=== PATIENT | male | born 1960 | race Caucasian/White ===

== ENCOUNTER 2020-12-23 08:20 | Emergency (ER) | payer OTHER, SELFPAY ==
[2020-12-23] VITALS (11 sets, daily range): BP systolic 147–164; BP diastolic 77–93; PULSE 51–69; RESP 16–18; TEMP 36.4; O2SAT 94–98; BMI 34.2
--- NOTE | 2020-12-23 10:33 | ED.DENTAL ---
HPI - Dental/Oral General Chief complaint: Dental/Oral Stated complaint: abcess tooth to jaw Time Seen by Provider: 12/23/20 10:07 Source: patient Mode of arrival: Ambulatory Limitations: no limitations History of Present Illness HPI Narrative: Patient is a 60-year-old male who presents with neck swelling and dental pain ongoing. He has already finished a course of what like Keflex due to his allergy to penicillin. His he said he was taking it 4 times a day he did have much relief. He actually had 1 brief moment where he thought it was relieved and then he noted that he had neck swelling and pain. He denies any fever or chills. He does feel like he is having more difficulty swallowing. Although he is speaking without any signs of respiratory distress. He tried to get evaluated yesterday he saw his primary care provider who recommended he have a CT unfortunately due to the extreme heat conditions the air-conditioner at [facility] was overwhelmed in the CT scanner was down. He is here today for evaluation Teeth map: 1. Related Data Previous Rx's Medication Instructions Recorded mupirocin 2 % topical ointment 1 applic TOP TID #22 gram 02/10/19 sulfamethoxazole 800 1 tab PO BID #14 tab 02/10/19 mg-trimethoprim 160 mg tablet (Bactrim DS) clindamycin HCl 300 mg capsule 300 mg PO QID #30 cap 12/23/20 prednisone 20 mg tablet 40 mg PO DAILY #10 tab 12/23/20 Allergies Allergy/AdvReac Type Severity Reaction Status Date / Time Penicillins [PENICILLINS] Allergy Unknown Verified 02/10/19 11:14 Review of Systems Review of Systems Narrative: GENERAL: Denies chills, fatigue, malaise, fever, sweats, travel HEENT: Dental issue with neck swelling RESPIRATORY: Denies dyspnea, cough, wheezing, hemoptysis, sputum. CARDIOVASCULAR: Denies chest pain, palpitations, orthopnea, edema GASTROINTESTINAL: Denies nausea, vomiting, abdominal pain, diarrhea, constipation, melena. : Denies dysuria, frequency, incontinence, hematuria, urinary retention, flank pain. MUSCULOSKELETAL: Denies weakness, joint pain, or bony pain SKIN: No rash, no erythema, no pruritus NEUROLOGIC: Denies weakness, dizziness, headache, numbness, change in speech, confusion PSYCHIATRIC: No concerning psychosocial issues. 12 point review of systems is negative except for those stated above and HPI Patient History Social History Smoking Status: Never smoker alcohol intake: current Smoking Status: Never smoker alcohol intake frequency: 0-2 drinks per day Substance Use Type: marijuana Exam Initial Vital Signs Initial Vital Signs: Vital Signs Temperature 97.5 F L 12/23/20 08:50 Pulse Rate 65 12/23/20 08:50 Respiratory Rate 18 12/23/20 08:50 Blood Pressure 158/81 H 12/23/20 08:50 Pulse Oximetry 98 12/23/20 08:50 GENERAL: Alert very nice 60-year-old gentleman no acute distress HEENT: Head atraumatic,EOMI, pupils reactive, face symmetric, moist mucous membranes MOUTH: No dental abscess home no trismus NECK: There is actual some cervical lymphadenopathy both on the right submandibular and central located as well, no significant erythema CARDIOVASCULAR: Regular rate and rhythm without murmurs, rubs or gallops. RESPIRATORY: Breath sounds equal bilaterally, no wheezes rales or rhonchi. EXTREMITIES: Normal range of motion, no clubbing or edema. Neurovascularly intact NEUROLOGICAL: Alert and oriented x4. SKIN: Warm, dry, no laceration, no petechiae, no rashes or lesions. Course Orders Ordered: ED Orders 12/23/20 10:56 Complete Blood Count AUTO DIFF Stat Comprehensive Metabolic Panel Stat Procalcitonin Stat 12/23/20 11:19 Blood Culture Stat 12/23/20 11:40 CT soft tissue neck w con Stat Discontinued Medications Clindamycin Phosphate (Cleocin) 600 mg in 50 mls @ 50 mls/hr IV NOW ONE Stop: 12/23/20 11:34 Last Infusion: 12/23/20 12:29 Dose: 0 mls/hr Documented by: Infusion: 12/23/20 11:48 Dose: 50 mls/hr Documented by: Infusion: 12/23/20 11:34 Dose: 0 mls/hr Documented by: Admin: 12/23/20 11:22 Dose: 50 mls/hr Documented by: BUTCH Dexamethasone 20 mg/ Sodium (Chloride) 52 mls @ 208 mls/hr IV NOW ONE Stop: 12/23/20 13:43 Last Infusion: 12/23/20 14:03 Dose: 0 mls/hr Documented by: Admin: 12/23/20 13:48 Dose: 208 mls/hr Documented by: BUTCH Ketorolac Tromethamine (Ketorolac 30 Mg/Ml Vial) 30 mg IV NOW ONE Stop: 12/23/20 10:44 Last Admin: 12/23/20 11:12 Dose: 30 mg Documented by: BUTCH Vital Signs Vital signs: Vital Signs - 8 hr 12/23/20 12:00 12/23/20 12:30 12/23/20 14:10 Pulse Rate 51 L 59 L 58 L Respiratory Rate 16 Blood Pressure 161/84 H 147/82 H Pulse Oximetry 94 97 96 MDM - Dental/Oral Lab Data Result diagrams: 12/23/20 10:56 12/23/20 10:56 Labs: Lab Results 12/23/20 12/23/20 12/23/20 Range/Units 10:56 10:56 10:56 WBC 10.4 (4.5-11.0) X10^3/uL RBC 4.80 (4.5-5.9) X10^6/uL Hgb 14.5 (13.5-17.5) g/dL Hct 43.4 (41-53) % MCV 90.3 (80-100) fL MCH 30.3 (26-34) PG MCHC 33.5 (30-36) % RDW 13.6 (11.6-14.8) % Plt Count 221 (150-400) X10^3/uL Neut % (Auto) 68.5 (50-75) % Lymph % (Auto) 21.6 L (25-40) % Isabela % (Auto) 7.4 (3-14) % Eos % (Auto) 1.5 L (2-4) % Baso % (Auto) 1.0 (0-2) % Neut # (Auto) 7100 H (0187-0086) /uL Lymph # (Auto) 2300 (2809-5538) /uL Isabela # (Auto) 800 (0-900) /uL Eos # (Auto) 200 (0-450) /uL Baso # (Auto) 100 (0-100) /uL Sodium 138 (137-145) mmol/L Potassium 4.1 (3.4-5.1) mmol/L Chloride 106 (98-107) mmol/L Carbon Dioxide 22 (22-32) mmol/L BUN 17 (9-20) mg/dL Creatinine 0.77 (0.66-1.25) mg/dL Estimated GFR > 60.0 (>60) mL/min BUN/Creatinine Ratio 22.1 H (6-22) Glucose 105 (80-110) mg/dL Calcium 9.4 (8.4-10.2) mg/dL Total Bilirubin 0.7 (0.2-1.3) mg/dL AST 32 (17-59) IU/L ALT 38 (<50) IU/L Alkaline Phosphatase 60 (38-126) U/L Total Protein 7.4 (6.3-8.2) g/dL Albumin 4.3 (3.5-5.0) g/dL Globulin 3.1 (1.7-4.1) g/dL Albumin/Globulin Ratio 1.4 (1.0-2.8) Procalcitonin 0.06 (<0.5) ng/mL Imaging Data CT soft tissue neck: Radiologist's Impression: PROCEDURE: CT SOFT TISSUE NECK W CON INDICATIONS: neck swelling right lower dental issue TECHNIQUE: After the administration of intravenous contrast, 3.0 mm axial sections acquired from the sella to the aortic arch. Additional oblique axial 3.0 mm sections acquired through the pharynx. 3 mm thick coronal and sagittal reformats were generated. For radiation dose reduction, the following was used: automated exposure control. COMPARISON: None. FINDINGS: Image quality: Metal artifact from dental work produces reduced quality of visualization along the mandible and maxilla bilaterally. Lymph nodes: No enlarged lymph nodes seen throughout the neck. Beneath the right submandibular gland there is a finding of several mildly prominent lymph nodes without central necrosis. Vessels: Visualized vasculature appears patent. Neck spaces: The oropharynx, nasopharynx, and pharynx demonstrate no mucosal lesions. The vocal cords, false vocal cords, pyriform sinuses, epiglottis, vallecula, and tongue base all appear normal. Extramucosal spaces appear unremarkable. Glands: The parotid and submandibular glands appear normal. Thyroid gland appears normal where well visualized.. Miscellaneous: Visualized brain and orbits appear normal. Lung apices appear clear. Superficial soft tissues appear normal. Bones: No suspicious bony lesions. Visualized sinuses and mastoids appear unremarkable. IMPRESSION: In the area of current clinical concern, with reported swelling and pain near the right posterior molar are teeth, there is metal artifact from dental work involving the maxilla and mandible, present bilaterally. No area of osteomyelitis or abscess formation is seen but the metal artifact does reduced quality of visualization. Pattern Robby dedicated dental films may be warranted to provide improved periodontal visualization. Several presumed reactive lymph nodes are seen just beneath the submandibular gland on the right, which are not pathologically enlarged but are asymmetric when compared to lymph nodes on the left in the same area. Dictated by: Antione Espinosa M.D. on 12/23/2020 at 12:45 MDM Narrative Medical decision making narrative: Concern for deep neck infection. He does have some neck swelling, concern for an abscesses. Patient certainly has no airway compromise. CT does not show any airway compromise or abscess but reactive lymph nodes. Patient is unclear what antibiotic he was on but he believes he was on ciprofloxacin or Keflex. He is given 1 dose of IV clindamycin Toradol and a dose of dexamethasone. He states that he feels the swelling has gone down significantly he would like to go home. I discussed with him that he should monitor the swelling very closely and with any changes he should return to the nearest emergency department. I have informed him that he could potentially have increased swelling which could cause airway compromise. He understands and agrees to return if any of these should develop. He is given prescription for clindamycin as well as prednisone to help with swelling. It sounds as though he has good relation with his primary care provider who happens to be in [place], although he lives here in [facility]. Discharge Plan Departure Patient Disposition: Home Clinical Impression: Dental infection Instructions: Tooth Abscess Activity Restrictions/Additional Instructions: *You have been diagnosed with dental infection causing neck infection *What to do: At this time please monitor symptoms very closely. Take antibiotics and steroids as recommended. If you should have any increased swelling in her neck difficulty swallowing difficulty breathing unable to manage your own spit the please return to the nearest emergency department *Continue to take medications as directed--> Clindamycin 300 mg 4 times a day for 10 days Prednisone 40 mg once a day for 5 days start tomorrow *Follow up with your primary care provider in 2-3 days *Return to ER if you should have difficulty swallowing, breathing, increased swelling [or] any new, worsening or concerning symptoms Prescriptions: New clindamycin HCl 300 mg capsule 300 mg PO QID Qty: 30 RF: 0 prednisone 20 mg tablet 40 mg PO DAILY Qty: 10 RF: 0 No Action sulfamethoxazole-trimethoprim [Bactrim DS] 800-160 mg tablet 1 tab PO BID Qty: 14 RF: 0 mupirocin 2 % ointment 1 applic TOP TID Qty: 22 RF: 0
[2020-12-23 11:05] LABS: Add Manual Diff / Slide Review NO; Basophils Absolute Auto 100 /uL (0-100); Eosinophils Absolute Auto 200 /uL (0-450); Eosinophils Percent Auto 1.5 % (2-4); Hematocrit 43.4 % (41-53); Hemoglobin 14.5 g/dL (13.5-17.5); Lymphocytes Absolute Auto 2300 /uL (1100-4500); Lymphocytes Percent Auto 21.6 % (25-40); Mean Corpuscular HGB Conc 33.5 % (30-36); Mean Corpuscular Hemoglobin 30.3 PG (26-34); Mean Corpuscular Volume 90.3 fL (80-100); Monocytes Absolute Auto 800 /uL (0-900); Monocytes Percent Auto 7.4 % (3-14); Neutrophils Absolute Auto 7100 /uL (1500-7000); Neutrophils Percent Auto 68.5 % (50-75); Platelet Count 221 X10^3/uL (150-400); Red Cell Distribution Width 13.6 % (11.6-14.8); White Blood Cell Count 10.4 X10^3/uL (4.5-11.0)
[2020-12-23] MEDS: KETOROLAC 30 MG/ML VIAL IV (11:12)
[2020-12-23 11:18] LABS: Alanine Aminotransferase 38 IU/L (<50); Albumin 4.3 g/dL (3.5-5.0); Albumin Globulin Ratio 1.4 (1.0-2.8); Alkaline Phosphatase 60 U/L (38-126); Aspartate Aminotransferase 32 IU/L (17-59); BUN Creatinine Ratio 22.1 (6-22); Bilirubin Total 0.7 mg/dL (0.2-1.3); Blood Urea Nitrogen 17 mg/dL (9-20); Calcium 9.4 mg/dL (8.4-10.2); Carbon Dioxide 22 mmol/L (22-32); Chloride 106 mmol/L (98-107); Estimated Glomerular Filt Rate > 60.0 mL/min (>60); Globulin 3.1 g/dL (1.7-4.1); Glucose 105 mg/dL (80-110); HEMOLYSIS < 15 (0-50); Potassium 4.1 mmol/L (3.4-5.1); Sodium 138 mmol/L (137-145); Total Protein 7.4 g/dL (6.3-8.2)
[2020-12-23] MEDS: CLINDAMYCIN 600 MG/50 ML PIGGYBACK 50 MG IV (11:22)
--- NOTE | 2020-12-23 11:33 | PC.NURSE ---
Swelling noted to R neck area. Airway patent.
[2020-12-23 11:34] LABS: Procalcitonin 0.06 ng/mL (<0.5)
--- NOTE | 2020-12-23 11:40 | DI.CT.S_ITS ---
PROCEDURE: CT SOFT TISSUE NECK W CON INDICATIONS: neck swelling right lower dental issue TECHNIQUE: After the administration of intravenous contrast, 3.0 mm axial sections acquired from the sella to the aortic arch. Additional oblique axial 3.0 mm sections acquired through the pharynx. 3 mm thick coronal and sagittal reformats were generated. For radiation dose reduction, the following was used: automated exposure control. COMPARISON: None. FINDINGS: Image quality: Metal artifact from dental work produces reduced quality of visualization along the mandible and maxilla bilaterally. Lymph nodes: No enlarged lymph nodes seen throughout the neck. Beneath the right submandibular gland there is a finding of several mildly prominent lymph nodes without central necrosis. Vessels: Visualized vasculature appears patent. Neck spaces: The oropharynx, nasopharynx, and pharynx demonstrate no mucosal lesions. The vocal cords, false vocal cords, pyriform sinuses, epiglottis, vallecula, and tongue base all appear normal. Extramucosal spaces appear unremarkable. Glands: The parotid and submandibular glands appear normal. Thyroid gland appears normal where well visualized.. Miscellaneous: Visualized brain and orbits appear normal. Lung apices appear clear. Superficial soft tissues appear normal. Bones: No suspicious bony lesions. Visualized sinuses and mastoids appear unremarkable. IMPRESSION: In the area of current clinical concern, with reported swelling and pain near the right posterior molar are teeth, there is metal artifact from dental work involving the maxilla and mandible, present bilaterally. No area of osteomyelitis or abscess formation is seen but the metal artifact does reduced quality of visualization. Pattern Robby dedicated dental films may be warranted to provide improved periodontal visualization. Several presumed reactive lymph nodes are seen just beneath the submandibular gland on the right, which are not pathologically enlarged but are asymmetric when compared to lymph nodes on the left in the same area. Dictated by: Antione Espinosa M.D. on 12/23/2020 at 12:45 Approved by: Antione Espinosa M.D. on 12/23/2020 at 12:50
[2020-12-23] MEDS: dexAMETHasone 20 MG in SODIUM CHLORIDE 0.9% 50 ML 208 ML IV (13:48)
== END 2020-12-23 14:11 | disposition home or self-care (01) ==
PROVIDERS: Emergency Provider Emergency Medicine
DX: K04.7 Periapical abscess without sinus (principal)
CPT/HCPCS: 36415; 70491; 80053; 84145; 85025; 87040; 96365; 96375; 99284; J1100; J1885